=== PATIENT | female | born 1985 | race Caucasian/White ===

== ENCOUNTER 2016-11-07 11:50 | Emergency (ER) | payer MEDICAID, OTHER ==
[~2016-11-07] VITALS: Ht 170.2 cm; Wt 97.5 kg
[~2016-11-07 11:50] MED LIST: AZIT250T94 PO; CEPH-443 PO; CLIN60LO7 TOP; IBUP-1542 PO; ORPH100T PO; POLY10DR19 BOTH EYES; SULF1TAB31 PO; TRAM50TA2 PO; TRIA15CR55 TOP
[2016-11-07 12:08] VITALS: Ht 170.2 cm; Wt 97.5 kg
[2016-11-07 13:48] LABS: URINE BLOOD (Dip) POC Negative (NEGATIVE)
[2016-11-07] MEDS ORDERED: IBUPROFEN 600 MG TAB PO ONE (14:00)
[2016-11-07] MEDS ORDERED: CEPH-443 PO (14:14)
[2016-11-07] MEDS ORDERED: IBUP-1542 PO (14:14)
--- NOTE | 2016-11-07 14:27 | ERD ---
ER Documentation Chief Complaint Date/Time DATE: 11/07/16 TIME: 14:26 Chief Complaint pt bib self with c/o headache x few days HPI This 31-year-old female presents with bitemporal headache for last 3 days. She denies fevers, vomiting, visual changes, history of trauma. She denies neck stiffness or rashes. She denies urinary complaints. Patient denies previous headaches. She took ibuprofen yesterday and it did improve her headache. ROS All systems reviewed and are negative except as per history of present illness. Medications Home Meds Active Scripts Cephalexin* (Keflex*) 500 Mg Capsule, 500 MG PO QID for 5 Days, CAP Prov:OH BLAS MD 11/07/16 Ibuprofen* (Motrin*) 600 Mg Tab, 600 MG PO Q6, #15 TAB Prov:OH BLAS MD 11/07/16 Orphenadrine Citrate (Norflex) 100 Mg Tablet.sa, 100 MG PO BID for 7 Days, TAB.SA Prov:SWETHA HUNTER 10/01/15 Ibuprofen* (Motrin*) 600 Mg Tab, 600 MG PO Q6, #30 TAB Prov:SWETHA HUNTER 10/01/15 Polymyxin B Sulfate-TMP* (Polymyxin B-TMP Eye Drops*) 10 Ml Drops, 1 DROP BOTH EYES QID for 7 Days, EA Prov:JANAK JOHNSON PA-C 05/11/15 Azithromycin* (Zithromax*) 250 Mg Tablet, 250 MG PO .ZPACK DIRECTED, #6 TAB TAKE 500 MG (2 TABS) THE FIRST DAY THEN 250 MG (1 TAB) DAYS 2-5 Prov:JANAK JOHNSON PA-C 05/11/15 Ibuprofen* (Motrin*) 600 Mg Tab, 600 MG PO Q6, #14 TAB Prov:OH BLAS MD 02/28/15 Cephalexin* (Keflex*) 500 Mg Capsule, 500 MG PO QID for 5 Days, CAP Prov:OH BLAS MD 02/28/15 Clindamycin* Topical (Clindamycin* Topical) 1% - 60 Ml Lotion, 1 APPLIC TOP BID for 14 Days, EA apply a thin layer on affected areas on pubic region Prov:WILLIE SQUIRES PA-C 01/18/15 Triamcinolone Acetonide* (Kenalog*) 0.1%-15GM Cr, 1 APPLIC TOP BID for 14 Days, EA do not apply on face. Use on affected areas through out body Prov:WILLIE SQUIRES PA-C 01/18/15 Ibuprofen* (Motrin*) 600 Mg Tab, 600 MG PO Q6, #20 TAB Prov:OH BLAS MD 11/22/14 Tramadol HCl (Tramadol HCl) 50 Mg Tab, 50 MG PO Q4 Y for PAIN, #14 TAB Prov:OH BLAS MD 11/22/14 Sulfamethoxazole-Trimethoprim (Bactrim DS Tablet) 800-160 Mg Tab, 1 TAB PO BID for 7 Days, TAB Prov:OH BLAS MD 11/22/14 Allergies Allergies: Coded Allergies: No Known Allergy (Unverified , 05/11/15) PMhx/Soc History of Surgery: Yes (Appy, Tubal Ligation.) Anesthesia Reaction: No Hx Neurological Disorder: No Hx Respiratory Disorders: No Hx Cardiac Disorders: No Hx Psychiatric Problems: No Hx Miscellaneous Medical Probl: No Hx Alcohol Use: No Hx Substance Use: No Hx Tobacco Use: No Smoking Status: Never smoker Physical Exam Vitals Vital Signs Date Time Temp Pulse Resp B/P Pulse Ox O2 Delivery O2 Flow Rate FiO2 11/07/16 12:08 98.3 74 16 133/74 98 Physical Exam Const: [] Alert, [id number]. Head: Atraumatic Eyes: Normal Conjunctiva ENT: Normal External Ears, Nose and Mouth. Neck: Full range of motion..~ No meningismus. Resp: Clear to auscultation bilaterally Cardio: Regular rate and rhythm, no murmurs Abd: Soft, non tender, non distended. Normal bowel sounds Skin: No petechiae or rashes Back: No midline or flank tenderness Ext: No cyanosis, or edema Neur: Awake and alert. There is some reproducible tenderness in the bitemporal area. There is no pulsatile masses. Cranial nerves II through XII grossly intact. Normal gait. Psych: Normal Mood and Affect Results 24 hrs Laboratory Tests Test 11/07/16 13:55 Bedside Urine pH (LAB) 6.0 Bedside Urine Protein (LAB) Negative Bedside Urine Glucose (UA) Negative Bedside Urine Ketones (LAB) Negative Bedside Urine Blood Negative Bedside Urine Nitrite (LAB) Negative Bedside Urine Leukocyte Esterase (L 1+ Current Medications Medications (Trade) Dose Ordered Sig/Emma Route PRN Reason Start Time Stop Time Status Last Admin Dose Admin Ibuprofen (Motrin) 600 mg ONCE ONCE PO 11/07/16 14:00 11/07/16 14:01 DC 11/07/16 13:49 Procedures/MDM Urine shows leukocytes without additional acute findings. HCG is negative. Patient's presents with her last 3 days and signs of UTI. Her headache is consistent with a tension headache. Current signs or symptoms do not suggest meningitis, mass-effect, central lesions, neurologic deficit. She will treated with ibuprofen and Keflex and further observation at home and return precautions. The patient was stable with no new complaints during the ER course. Clinically, there is no current evidence to suggest meningitis, sepsis, acute abdomen, pneumonia, acute coronary syndrome, pulmonary embolism, or any other emergent condition appearing to require further evaluation or hospitalization. The patient should certainly return for any new or worsening symptoms per the aftercare instructions. They should otherwise follow-up with her primary care doctor for reevaluation this week. Departure Diagnosis: Primary Impression: Headache Headache type: unspecified Headache chronicity pattern: unspecified pattern Intractability: not intractable Qualified Code: R51 - Nonintractable headache, unspecified chronicity pattern, unspecified headache type Additional Impression: UTI (urinary tract infection) Urinary tract infection type: acute cystitis Hematuria presence: without hematuria Qualified Code: N30.00 - Acute cystitis without hematuria Condition: Stable Patient Instructions: Understanding Urinary Tract Infections (UTIs), Self-Care for Headaches Additional Instructions: Symptoms consistent with tension headache. Urine shows infection we will treat for this. Recheck for new or worsening symptoms-visual changes, vomiting, fevers or with primary care doctor this week . Drink plenty of fluids at home. OH BLAS MD Nov 07, 2016 14:27
== END 2016-11-07 14:29 | disposition home or self-care (01) ==
LOC: FTE 11:50
DX: R51 Headache (principal); N30.00 Acute cystitis without hematuria
CPT/HCPCS: 81003; Z7502; Z7610; 99283

== ENCOUNTER 2017-03-27 17:01 | Emergency (ER) | END 2017-03-27 21:26 | disposition home or self-care (01) ==

== ENCOUNTER 2017-05-29 15:32 | Emergency (ER) | END 2017-05-29 22:10 | disposition home or self-care (01) ==

== ENCOUNTER 2017-08-25 15:31 | Emergency (ER) | END 2017-08-25 19:34 | disposition home or self-care (01) ==

== ENCOUNTER 2017-11-27 15:40 | Emergency (ER) | END 2017-11-27 18:15 | disposition home or self-care (01) ==

== ENCOUNTER 2018-04-24 15:39 | Emergency (ER) | payer OTHER ==
[~2018-04-24] VITALS: Ht 167.6 cm; Wt 104.0 kg
[~2018-04-24 15:39] MED LIST changes: +AZIT250T PO; -AZIT250T94 PO; +CEPASTAT MT; +CIPR500T4 PO; +HYDR-4011 PO; +IBUP-1561 PO; +NAPR-985 PO; +ONDA4TAB8 PO; +PHEN-537 PO; +PSEU60TA2 PO
[2018-04-24 15:41] VITALS: Ht 167.6 cm; Wt 104.0 kg
[2018-04-24] MEDS ORDERED: KETOROLAC 15 MG INJ IV STA (17:27)
[2018-04-24] MEDS ORDERED: SOD CHLORIDE 0.9% 1,000 ML IV STA (17:27)
[2018-04-24] MEDS ORDERED: ONDANSETRON 4 MG INJ IV STA (17:27)
[2018-04-24] MEDS ORDERED: MECLIZINE 12.5 MG TAB PO ONE (17:30)
--- NOTE | 2018-04-24 17:48 | ERD ---
ER Documentation Chief Complaint Chief Complaint Pelvic pain /10 X 1 day, denies dysuria HPI 32-year-old female presents with history of pelvic pain since this morning. States she is also had yellow vaginal discharge since yesterday. In addition upon the exam she was experiencing some dizziness which she described as the room spinning but has not had any prior episodes of that. Denies dysuria, denies hematuria, denies nausea, vomiting, diarrhea, chest pain, shortness of breath, dyspnea. She has had tubal ligation. Last menstrual period was 04/07. Denies past medical history. Denies allergies. Denies medications. Denies surgeries. Denies alcohol, tobacco, drug use. Up to date on vaccines. ROS All systems reviewed and are negative except as per history of present illness. Medications Home Meds Active Scripts Metronidazole* (Flagyl*) 500 Mg Tablet, 500 MG PO BID for 7 Days, TAB Prov:ERASMO HERNANDEZ 04/24/18 Pseudoephedrine Hcl* (Pseudoephedrine Hcl*) 60 Mg Tablet, 60 MG PO Q6 PRN for CONGESTION, #20 TAB Prov:SAMI MARIE PA-C 11/27/17 Throat Lozenges* (Cepastat*) 9 Lali Lozenge, 1 LOZ[place] Q3H PRN, #20 LOZENGE Prov:SAMI MARIE PA-C 11/27/17 Ondansetron Hcl* (Zofran*) 4 Mg Tablet, 4 MG PO Q6H for NAUSEA AND/OR VOMITING, #30 TAB Prov:RILEY BROOKS PA-C 08/25/17 Naproxen* (Naprosyn*) 500 Mg Tablet, 500 MG PO BID PRN for PAIN AND/OR INFLAMMATION, #30 TAB Prov:RILEY BROOKS PA-C 08/25/17 Hydrocodone/Acetaminophen (Parker 5-325 Tablet) 1 Each Tablet, 1 TAB PO Q6H PRN for PAIN, #7 TAB Prov:RILEY BROOKS PA-C 08/25/17 Naproxen* (Naprosyn*) 500 Mg Tablet, 500 MG PO BID PRN for PAIN AND/OR INFLAMMATION, #30 TAB Prov:CYNTHIA TINEO 05/29/17 Ibuprofen* (Motrin*) 400 Mg Tab, 400 MG PO Q6, #30 TAB Prov:EYAD KING PA-C 03/27/17 Phenazopyridine Hcl* (Pyridium*) 100 Mg Tab, 100 MG PO TID PRN for URINARY PAIN, #8 TAB Prov:EYAD KING PA-C 03/27/17 Ciprofloxacin Hcl* (Ciprofloxacin Hcl*) 500 Mg Tablet, 500 MG PO BID for 7 Days, TAB Prov:EYAD KING PA-C 03/27/17 Cephalexin* (Keflex*) 500 Mg Capsule, 500 MG PO QID for 5 Days, CAP Prov:OH BLAS MD 11/07/16 Ibuprofen* (Motrin*) 600 Mg Tab, 600 MG PO Q6, #15 TAB Prov:OH BLAS MD 11/07/16 Orphenadrine Citrate (Norflex) 100 Mg Tablet.sa, 100 MG PO BID for 7 Days, TAB.SA Prov:SWETHA HUNTER 10/01/15 Ibuprofen* (Motrin*) 600 Mg Tab, 600 MG PO Q6, #30 TAB Prov:SWETHA HUNTER 10/01/15 Polymyxin B Sulfate-TMP* (Polymyxin B-TMP Eye Drops*) 10 Ml Drops, 1 DROP BOTH EYES QID for 7 Days, EA Prov:JANAK JOHNSON PA-C 05/11/15 Azithromycin* (Zithromax*) 250 Mg Tablet, 250 MG PO .ZPACK DIRECTED, #6 TAB TAKE 500 MG (2 TABS) THE FIRST DAY THEN 250 MG (1 TAB) DAYS 2-5 Prov:JANAK JOHNSON PA-C 05/11/15 Ibuprofen* (Motrin*) 600 Mg Tab, 600 MG PO Q6, #14 TAB Prov:OH BLAS MD 02/28/15 Cephalexin* (Keflex*) 500 Mg Capsule, 500 MG PO QID for 5 Days, CAP Prov:OH BLAS MD 02/28/15 Clindamycin* Topical (Clindamycin* Topical) 1% - 60 Ml Lotion, 1 APPLIC TOP BID for 14 Days, EA apply a thin layer on affected areas on pubic region Prov:WILLIE SQUIRES PA-C 01/18/15 Triamcinolone Acetonide* (Kenalog*) 0.1%-15GM Cr, 1 APPLIC TOP BID for 14 Days, EA do not apply on face. Use on affected areas through out body Prov:WILLIE SQUIRES PA-C 01/18/15 Ibuprofen* (Motrin*) 600 Mg Tab, 600 MG PO Q6, #20 TAB Prov:OH BLAS MD 11/22/14 Tramadol HCl (Tramadol HCl) 50 Mg Tab, 50 MG PO Q4 PRN for PAIN, #14 TAB Prov:OH BLAS MD 11/22/14 Sulfamethoxazole-Trimethoprim (Bactrim DS Tablet) 800-160 Mg Tab, 1 TAB PO BID for 7 Days, TAB Prov:OH BLAS MD 11/22/14 Allergies Allergies: Coded Allergies: No Known Allergy (Unverified , 05/29/17) PMhx/Soc History of Surgery: Yes (BTL, Appendicitis) Anesthesia Reaction: No Hx Neurological Disorder: No Hx Respiratory Disorders: No Hx Cardiac Disorders: No Hx Psychiatric Problems: No Hx Miscellaneous Medical Probl: No Hx Alcohol Use: No Hx Substance Use: No Hx Tobacco Use: No Smoking Status: Never smoker FmHx Family History: No diabetes, No coronary disease, No other Physical Exam Vitals Vital Signs Date Temp Pulse Resp B/P (MAP) Pulse Ox O2 O2 Flow FiO2 Time Delivery Rate 04/24/18 98.0 70 16 110/59 100 Room Air 21:44 (76) 04/24/18 99.5 86 18 149/82 98 15:41 (104) Physical Exam Const: No acute distress Head: Atraumatic Eyes: Normal Conjunctiva ENT: Normal External Ears, Nose and Mouth. Neck: Full range of motion. No meningismus. Resp: Clear to auscultation bilaterally Cardio: Regular rate and rhythm, no murmurs Abd: Mild lower abdominal pain without guarding or rigidity.. Normal bowel sounds Skin: No petechiae or rashes Back: No midline or flank tenderness Ext: No cyanosis, or edema Neur: Awake and alert Psych: Normal Mood and Affect Result Diagram: 04/24/18 9775 Results 24 hrs Laboratory Tests Test 04/24/18 17:42 04/24/18 18:45 04/24/18 18:53 White Blood Count 10.3 10^3/ul Red Blood Count 4.28 10^6/ul Hemoglobin 12.9 g/dl Hematocrit 39.6 % Mean Corpuscular Volume 92.5 fl Mean Corpuscular Hemoglobin 30.1 pg Mean Corpuscular 32.6 g/dl Hemoglobin Concent Red Cell Distribution Width 13.5 % Platelet Count 283 10^3/UL Mean Platelet Volume 10.9 fl Immature Granulocytes % 0.400 % Neutrophils % 67.9 % Lymphocytes % 24.8 % Monocytes % 5.9 % Eosinophils % 0.4 % Basophils % 0.6 % Nucleated Red Blood Cells % 0.0 /100WBC Immature Granulocytes # 0.040 10^3/ul Neutrophils # 7.0 10^3/ul Lymphocytes # 2.6 10^3/ul Monocytes # 0.6 10^3/ul Eosinophils # 0.0 10^3/ul Basophils # 0.1 10^3/ul Nucleated Red Blood Cells # 0.0 10^3/ul Lipase 226 U/L Urine Color STRAW Urine Clarity CLEAR Urine pH 7.0 Urine Specific Drummond 1.009 Urine Ketones NEGATIVE mg/dL Urine Nitrite NEGATIVE mg/dL Urine Bilirubin NEGATIVE mg/dL Urine Urobilinogen NEGATIVE mg/dL Urine Leukocyte Esterase NEGATIVE Jacqueline/ul Urine Microscopic RBC 1 /HPF Urine Microscopic WBC 0 /HPF Urine Hemoglobin 2+ mg/dL Urine Glucose NEGATIVE mg/dL Urine Total Protein NEGATIVE mg/dl POC Beta HCG, Qualitative NEGATIVE Current Medications Medications Dose Sig/Emma Start Time Status Last (Trade) Ordered Route PRN Stop Time Admin Dose Reason Admin Sodium 1,000 ml @ Q1H STAT 04/24/18 DC 04/24/18 Chloride 1,000 mls/hr IV 17:27 17:45 04/24/18 18:26 Ondansetron 4 mg ONCE STAT 04/24/18 DC 04/24/18 HCl (Zofran IV 17:27 17:45 Inj) 04/24/18 17:31 Meclizine 25 mg ONCE ONCE 04/24/18 DC 04/24/18 HCl PO 17:30 17:45 (Antivert) 04/24/18 17:31 Ketorolac 15 mg ONCE STAT 04/24/18 DC 04/24/18 Tromethamine IV 17:27 19:10 (Toradol) 04/24/18 17:31 1,000 mg ONCE ONCE 04/24/18 DC 04/24/18 Azithromycin PO 21:30 21:29 (Zithromax) 04/24/18 21:31 Ceftriaxone 1 gm ONCE ONCE 04/24/18 DC 04/24/18 Sodium IM 21:30 21:28 (Rocephin) 04/24/18 21:31 Lidocaine 5 ml ONCE ONCE 04/24/18 DC 04/24/18 (Xylocaine INJ 21:30 21:29 1% (Mpf)) 04/24/18 21:31 Procedures/MDM DIAGNOSTIC IMAGING REPORT Patient: DULCE MARIA AKHTAR : 1985 Age: 32 Sex: F MR #: [id number] DOS: 04/24/18 1738 Ordering MD: ERASMO HERNANDEZ Location: [facility] Room/Bed: PROCEDURE: US Pelvis. CLINICAL INDICATION: pelvic pain TECHNIQUE: Multiple sonographic images of the pelvis were obtained utilizing transabdominal technique. The images were reviewed on a PACS workstation. COMPARISON: 08/25/2017 FINDINGS: The uterus is normal in size with a normal appearance of the myometrium. The uterus measures 8.9 x 9.2 x 6.0 cm. The endometrial stripe is homogeneous in appearance and has the thickness of 6.7 mm. The ovaries are normal in size and echogenicity. Normal Doppler flow is identified in both ovaries. The right ovary measures 3.3 x 1.6 x 1.9 cm. The left ovary measures 3.4 x 2.4 x 2.7 cm. No free fluid is present within the pelvis. RPTAT: AA IMPRESSION: Unremarkable pelvic ultrasound. .Flakito De La Cruz MD, Date Time Electronically viewed and signed by .Flakito De La Cruz MD, on 04/24/2018 18:12 .S/ CC: ERASMO HERNANDEZ [id number] EKG: Rate/Rhythm: Normal Sinus Rhythm QRS, ST, T-waves: No changes consistent w/ acute ischemia Impression: No evidence of ischemia or arrhythmia 32-year-old female presents with history of pelvic pain since this morning. States she is also had yellow vaginal discharge since yesterday. In addition upon the exam she was experiencing some dizziness which she described as the room spinning but has not had any prior episodes of that. Denies dysuria, denies hematuria, denies nausea, vomiting, diarrhea, chest pain, shortness of breath, dyspnea. She has had tubal ligation. Last menstrual period was 04/07. Denies past medical history. Denies allergies. Denies medications. Denies surgeries. Denies alcohol, tobacco, drug use. Up to date on vaccines. Pelvic ultrasound was ordered in order to rule out torsion or abscess. None was noted. Fungal mount was positive for clue cells and pelvic exam showed white discharge. Patient given Rx for metronidazole and treated prophylactically for GC with azithromycin and ceftriaxone. Patient also stated she felt a little bit dizzy during the exam so she was given IV fluids as well as EKG. Dizziness was resolved. Patient given Rx for meclizine in case dizziness returns. Low suspicion for CVA, arrhythmia, intracranial mass, or any other emergent condition. I have low suspicion for ovarian torsion, tubo-ovarian abscess, cholecystitis, acute abdomen, appendicitis, PID, or other emergent condition. Patient discharged with strict ER precautions. Patient advised to follow up with PMD. All questions answered at discharge.. I called patient at 3:20 PM on April 27, 2018 after I saw that there was Pseudomonas in her urine culture. I left her a message telling her to call [facility] regarding the results of her urine test and to inquire whether she would need treatment. Departure Diagnosis: Primary Impression: Pelvic pain Additional Impression: Bacterial vaginosis Condition: Sorin HERNANDEZERASMO Apr 24, 2018 17:48
[2018-04-24] MEDS ORDERED: METR500T PO (21:12)
[2018-04-24] MEDS ORDERED: AZITHROMYCIN 250 MG TAB PO ONE (21:30)
[2018-04-24] MEDS ORDERED: LIDOCAINE 1% (MPF) 5 ML VIAL INJ ONE (21:30)
[2018-04-24] MEDS ORDERED: CEFTRIAXONE 1 GM INJ IM ONE (21:30)
[2018-04-24 21:44] VITALS: BP 110/59; PULSE 70; RESP 16
== END 2018-04-24 21:46 | disposition home or self-care (01) ==
LOC: FTE 15:39
DX: N76.0 Acute vaginitis (principal)
CPT/HCPCS: 76856; 81001; 81025; 83690; 85025; 87070; 87086; 87210; 93005; J0696; J1885; J2405; J7030; Z7610; 36415; 96372; 96374; 96375